=== PATIENT | female | born 1990 | race Caucasian/White ===

== ENCOUNTER 2024-08-06 09:09 | Emergency (ER) | payer MEDICAID, SELFPAY ==
[2024-08-06 09:49] VITALS: BP 137/84; PULSE 84; RESP 17; TEMP 36.8; O2SAT 96; BMI 26.9
--- NOTE | 2024-08-06 10:04 | XR_ITS ---
Examination: Abdomen sonogram, Limited Date and time of exam: August 06, 2024 1058 hours INDICATIONS: Vomiting epigastric pain beginning 6 months ago Technique: Real-time hendrickson scale transabdominal sonographic images of the upper abdomen obtained. Findings: Absent gallbladder Common bile duct 0.36 cm no stones Pancreatic head 1.9 cm Liver 14.8 cm fatty infiltration smooth contour no focal liver lesions Normal hepatopedal portal venous flow Patent IVC IMPRESSION: Absent gallbladder Normal common bile duct Fatty liver
--- NOTE | 2024-08-06 10:06 | PD.EDRME ---
Rapid Medical Screening Exam RME Arrival date/time: 08/06/24 09:09 33-year-old female presents to the emergency department with complaints of upper epigastric abdominal pain nausea vomiting and bloating. I have greeted and performed a focused initial assessment of this patient. Initial appropriate labs ordered at this time. A comprehensive ED assessment and evaluation of the patient and analysis of all test and completion of medical decision making process will be conducted by additional ED provider. Chief Complaint: Abdominal Pain Time Seen by Provider: 08/06/24 09:46 Vital signs: Vital Signs Temperature 98.2 F 08/06/24 09:49 Pulse Rate 84 08/06/24 09:49 Respiratory Rate 17 08/06/24 09:49 Blood Pressure 137/84 H 08/06/24 09:49 Pulse Oximetry (%) 96 08/06/24 09:49 Oxygen Delivery Method Room Air 08/06/24 09:49
[2024-08-06 10:31] LABS: Basophils % (Auto) 0 % (0-2.5); Eosinophils % (Auto) 1 % (0-10); Hematocrit 39.2 % (36.0-46.0); Hemoglobin 13.5 g/dL (12.0-16.0); Immature Granulocytes % (Auto) 1 % (0-0); Immature Granulocytes Auto 0.03 Thou/mm3 (0.00-0.00); Lymphocytes # (Auto) 1.5 Thou/mm3 (1.0-4.8); Lymphocytes % (Auto) 28 % (10-50); Mean Corpuscular HGB Conc 34.4 g/dl (31.0-37.0); Mean Corpuscular Hemoglobin 31.4 pg (25.0-35.0); Mean Corpuscular Volume 91 fL (80-100); Monocytes # (Auto) 0.4 Thou/mm3 (0.0-0.8); Monocytes % (Auto) 6 % (0-12); Neutrophils # (Auto) 3.6 Thou/mm3 (1.8-7.7); Neutrophils % (Auto) 64 % (37-80); Nucleated Red Blood Cell % 0 /100 WBC (0); Platelet Count 221 Thou/mm3 (140-440); RDW Standard Deviation 39.3 fL (36.4-46.3); White Blood Count 5.5 Thou/mm3 (3.6-11.0)
[2024-08-06 10:50] LABS: Alanine Aminotransferase 441 U/L (10-49); Albumin, Serum 4.6 gm/dL (3.5-5.0); Albumin/Globulin Ratio 1.6 (1.2-2.2); Alkaline Phosphatase 70 U/L (46-116); Anion Gap 5 (7-16); Aspartate Amino Transferase 441 U/L (0-34); BUN/Creatinine Ratio 16 Ratio (12-20); Bilirubin,Total 0.9 mg/dL (0.3-1.2); Blood Urea Nitrogen 13 mg/dL (9-23); Calcium 9.7 mg/dL (8.3-10.6); Calcium (Corrected) 9.7 mg/dL (8.5-10.1); Carbon Dioxide 27.7 mMol/L (20.0-31.0); Chloride 104 mMol/L (98-107); Creatinine (Component) 0.8 mg/dL (0.6-1.3); Estimated Creatinine Clearance 88.7 mL/min (>60); Globulin 2.8 gm/dL (2.3-3.5); Glucose 89 mg/dL (74-106); Lipase 36 U/L (12-53); Osmolality,Calculated 272 (275-295); Potassium 4.4 mMol/L (3.4-5.1); Sodium 137 mMol/L (136-145); Total Protein 7.4 gm/dL (5.7-8.2); eGFR > 60 See Note
[2024-08-06 11:05] LABS: Collection Type, Urine Clean Catch
[2024-08-06] MEDS: LIDOCAINE VISCOUS 2% 15 ML UDC PO (11:06)
[2024-08-06] MEDS: MG HYD/AL HYD/SIME (Maalox Reg) SUSP 30 ML UDC PO (11:06)
[2024-08-06 11:12] LABS: Bilirubin,Urine Negative (Negative); Blood,Urine Negative (Negative); Clarity,Urine Clear (Clear/Hazy); Color,Urine Yellow (Lt Yel-Yel); Glucose, Urine Negative (Negative); Ketones,Urine Negative (Negative); Leukocyte Esterase,Urine Positive (Negative); Nitrite,Urine Negative (Negative); Protein,Urine Trace (Neg - Trace); RBC,Urine 3 /hpf (0-3); Specific Gravity,Urine 1.025 (1.001-1.035); Squamous Epithelial Cell,Urine 4 /hpf (0-5); WBC,Urine 1 /hpf (0-5)
[2024-08-06 11:15] LABS: HCG Qualitative,Urine Negative
--- NOTE | 2024-08-06 11:43 | PD.EDABDPN ---
ED Abdominal Pain RME/HPI General Chief Complaint: Abdominal Pain Stated complaint: BURNING PAIN IN UPPER ABD Time seen by provider: 08/06/24 09:46 Arrival date/time: 08/06/24 09:09 RME / HPI RME / HPI narrative: 33-year-old female patient came in for evaluation regarding epigastric pain. Onset of symptoms last night, as burning-like sensation, severity moderate. Patient denies any vomiting denies any other complaints no medication was taken prior to arrival. Abdominal surgery includes laparoscopic cholecystectomy. Patient is not alcoholic. Related Data Home Medications ?Medication ?Instructions ?Recorded ?Confirmed methadone 10 mg/mL oral concentrate 10 mg PO Q6H 12/18/23 01/06/24 Previous Rx's ?Medication ?Instructions ?Recorded oxycodone-acetaminophen 5 mg-325 1 tab PO Q6H PRN pain #10 tabs 12/18/23 mg tablet (Percocet) pantoprazole 40 mg tablet,delayed 40 mg PO QDAY #20 tabs 08/06/24 release (Protonix) Allergies Allergy/AdvReac Type Severity Reaction Status Date / Time No Known Allergies Allergy Verified 08/06/24 09:13 Review of Systems Review of Systems Narrative Review of Systems: Review of system reviewed and within normal limits except mentioned in HPI ED Exam Narrative Physical exam: VITAL SIGNS: Reviewed. GENERAL APPEARANCE: Alert and interactive, follows commands, no acute distress, HEAD AND FACE: Non-traumatic. ENT: PERRL, pink conjunctivitis, eyelid no trauma, Mucous membrane moist. NECK: Supple, nontender, no nuchal rigidity. CHEST: No tenderness, no crepitus, no paradoxical movement, no retractions. LUNGS: Clear, well ventilated, symmetric, no rales, no wheezing, no ronchi, no stridor, good breath sounds bilaterally. HEART: Regular rate, regular rhythm, no murmur, no gallops. ABDOMEN: Soft, positive bowel sounds, nondistended, no guarding, epigastric tenderness, no rebound, no masses, RECTAL: Deferred. GENITAL: Deferred. NEUROLOGICAL: Gross motor function intact sensory function intact, Appropriate for age. MUSCULOSKELETAL: low back nontender, full range of motion. EXTREMITIES: Nontender, full range of motion. SKIN: Color pink, dry, no rash, no lacerations, no abrasions, no contusions. LYMPHATICS: Deferred. Course Quality Measures none Orders Category Date Time Status US gall bladder Stat Exams 08/06/24 10:04 Completed CBC Stat Lab 08/06/24 10:11 Completed Comprehensive Metabolic Panel Stat Lab 08/06/24 10:11 Completed HCG Qualitative,Urine Stat Lab 08/06/24 10:49 Completed Lipase Stat Lab 08/06/24 10:11 Completed Urinalysis Stat Lab 08/06/24 10:49 Completed Lidocaine 2% Viscous [Xylocaine 2% Viscous] Med 08/06/24 10:04 Discontinued 15 ml PO X1 ONE mg Hyd/Al Hyd/Migue Susp [Maalox Susp] Med 08/06/24 10:04 Discontinued 30 ml PO X1 ONE Vital Signs Vital signs: Vital Signs Temperature 98.2 F 08/06/24 09:49 Pulse Rate 84 08/06/24 09:49 Respiratory Rate 17 08/06/24 09:49 Blood Pressure 137/84 H 08/06/24 09:49 Pulse Oximetry (%) 96 08/06/24 09:49 Oxygen Delivery Method Room Air 08/06/24 09:49 Abdominal Pain MDM MDM Narrative MDM Narrative:: 33-year-old female patient came in for evaluation regarding epigastric pain. Onset of symptoms last night, as burning-like sensation, severity moderate. Patient denies any vomiting denies any other complaints no medication was taken prior to arrival. Abdominal surgery includes laparoscopic cholecystectomy. Patient is not alcoholic. Laboratory workup is significant for slightly elevated AST and ALT. The rest of the labs unremarkable ultrasound showed no acute pathology. Except for absent gallbladder. Common bile duct is normal. Results discussed with the patient. Patient was advised to follow-up closely with PCP and for referral to GI specialist regarding slightly elevated LFTs. Total bili is normal today. Patient's LFT also was noted to be elevated from previous visit. Patient was given GI cocktail with complete resolution of symptoms. Patient appears nontoxic and hemodynamically stable. Patient discharged home and instructed to follow-up with primary care provider in 24 to 48 hours. Instructed to return to the emergency department immediately if worsening of symptoms Patient data External records reviewed:: None Clinical information provided by:: none Social determinants that could affect healthcare access:: none Patient has the following chronic illnesses:: None How is presenting disease/condition affected by chronic disease/condition?: no chronic disease Evaluation data The following diagnostics were reviewed and interpreted by me:: lab results and radiology exam(s) Lab and/or radiology exams considered but not ordered:: None Interpretation Summary: See results in [facility] Medications / Prescriptions Medications or Prescriptions considered but not ordered:: None Medication administrations:: Medication Administration History Discontinued Medications Al Hydrox/Mg Hydrox/Simethicone (Mg Hyd/Al Hyd/Migue (Maalox Reg) Susp 30 Ml Udc) 30 ml PO X1 ONE Stop: 08/06/24 10:05 Last Admin: 08/06/24 11:06 Dose: 30 ml Documented By: TM Lidocaine HCl (Lidocaine Viscous 2% 15 Ml Udc) 15 ml PO X1 ONE Stop: 08/06/24 10:05 Last Admin: 08/06/24 11:06 Dose: 15 ml Documented By: GISELL Maalox and lidocaine viscus Consultations Consultation(s) initiated? (list below): No Diagnosis Differential diagnosis abdominal pain: abdominal pain, constipation and pancreatitis Most likely diagnosis given after review of the tests above:: Epigastric abdominal pain, gastritis Admission Indicated Admission indicated?: not indicated Admission Request Was there a request for admission?: No Disposition Plan Disposition Plan: Discharge Discharge Attestation Discharge Attestation: The patient was given an opportunity to ask questions and understood the discharge instructions. Discharge instructions specifically effects, indications for sooner follow up or return to the emergency department, and the expected course of current diagnosis. Patient condition: Stable Discharge Plan Plan Patient Disposition: HOME (Self Care) Disposition Comment: Stable Prescriptions/Referrals Prescriptions/Med Rec: New pantoprazole [Protonix] 40 mg tablet,delayed release (DR/EC) 40 mg PO QDAY Qty: 20 0RF No Action methadone 10 mg/mL Concentrate 10 mg PO Q6H oxycodone-acetaminophen [Percocet] 5-325 mg tablet 1 tab PO Q6H MDD 6 tabs PRN (Reason: pain) Qty: 10 0RF Referrals: Kris Jarvis MD [Primary Care Provider] - In 1 week Problem List Clinical Impression: Epigastric abdominal pain, Gastritis Patient/Caregiver Discharge Instructions Discharge Activity: activity as tolerated Education Materials: ED Gastritis (Adult) Additional Instructions: Thank you for the opportunity for serving you today. You are stable for discharged . You are advised to: Follow-up with your PCP in 1 to 2 days Return to ED for worsening of symptoms Increase oral fluids Take medication as prescribed Print Language: Bulgarian Stand Alone Forms: [employer] Info., Patient Portal Info Letter
== END 2024-08-06 12:01 | disposition home or self-care (01) ==
PROVIDERS: Nurse Practitioner Primary Care; Emergency Provider Emergency Medicine; PCP Family Medicine
DX: K29.70 Gastritis, unspecified, without bleeding (principal)
CPT/HCPCS: 36415; 76705; 80053; 81001; 81025; 83690; 85025; 99284; J3490; A9270

== ENCOUNTER 2024-08-09 16:32 | Emergency (ER) | payer MEDICAID, SELFPAY ==
[2024-08-09 17:20] VITALS: BP 150/96; PULSE 100; RESP 18; TEMP 36.9; O2SAT 95; BMI 24.5
--- NOTE | 2024-08-09 17:23 | XR_ITS ---
Examination: CT brain head without contrast. 2-D sagittal coronal reconstructions Date and time of exam:August 09, 2024 1744 hrs. Indications: Onset headaches dizziness today CTDI: vol (mGy):49 DLP: (mGycm):938 Technique: Multiple CT axial sections of the brain have been obtained, 5 mm slice thickness. Contrast has not been administered. 2-D sagittal, coronal reconstructions have been obtained Low dose protocols were performed. One or more of the following dose reduction techniques were used; automated exposure control, adjustment of the mA and/or KV according to patient size, use of iterative reconstruction technique. Findings: No significant ventricular enlargement. Intra-axial or extra-axial hemorrhage density is not seen. No mass effect or midline shift Basal cisterns are not remarkable. Fourth ventricle is midline. Cranial vault intact. Impression: Negative for acute hemorrhage, mass effect or midline shift Advise clinical correlation follow-up accordingly
--- NOTE | 2024-08-09 17:23 | EKG_ITS ---
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
--- NOTE | 2024-08-09 17:23 | XR_ITS ---
Examination: PA lateral chest 2 views Technique: Upright PA lateral chest 2 views Exam date and time August 09, 2024 at 1852 hrs. Indications: Chest pain beginning 3 days ago. Findings: Normal heart size Lungs are clear. The osseous structures are intact Impression: No active disease
--- NOTE | 2024-08-09 17:25 | PD.EDRME ---
Rapid Medical Screening Exam E Arrival date/time: 08/09/24 16:32 33-year-old female with no known medical history presents to the emergency room with a chief complaint of a 10 out of 10 headache, dizziness, numbing feeling to her face x 2 days. I have greeted and performed a focused initial assessment of this patient. A comprehensive ED assessment and evaluation of the patient, analysis of all test results, and completion of the medical decision making process will be conducted by additional ED providers. Chief Complaint: Allergic Reaction Vital signs: Vital Signs Temperature 98.5 F 08/09/24 17:20 Pulse Rate 100 08/09/24 17:20 Respiratory Rate 18 08/09/24 17:20 Blood Pressure 150/96 H 08/09/24 17:20 Pulse Oximetry (%) 95 08/09/24 17:20 Oxygen Delivery Method Room Air 08/09/24 17:20 Vital signs reviewed by provider: Yes
[2024-08-09 18:26] LABS: B-Type Natriuretic Peptide < 20 pg/mL (0-100)
[2024-08-09 18:28] LABS: Alanine Aminotransferase 114 U/L (10-49); Albumin, Serum 4.8 gm/dL (3.5-5.0); Albumin/Globulin Ratio 1.7 (1.2-2.2); Alkaline Phosphatase 59 U/L (46-116); Anion Gap 9 (7-16); Aspartate Amino Transferase 15 U/L (0-34); BUN/Creatinine Ratio 13 Ratio (12-20); Bilirubin,Total 0.3 mg/dL (0.3-1.2); Blood Urea Nitrogen 10 mg/dL (9-23); Calcium 9.6 mg/dL (8.3-10.6); Calcium (Corrected) 9.6 mg/dL (8.5-10.1); Chloride 101 mMol/L (98-107); Creatinine (Component) 0.8 mg/dL (0.6-1.3); Estimated Creatinine Clearance 89.2 mL/min (>60); Globulin 2.8 gm/dL (2.3-3.5); Glucose 92 mg/dL (74-106); Osmolality,Calculated 274 (275-295); Potassium 3.8 mMol/L (3.4-5.1); Sodium 138 mMol/L (136-145); Total Protein 7.6 gm/dL (5.7-8.2); Troponin I < 0.002 ng/mL (0.0-0.045); eGFR > 60 See Note
[2024-08-09 18:36] LABS: Basophils % (Auto) 0 % (0-2.5); Eosinophils % (Auto) 0 % (0-10); Hematocrit 38.2 % (36.0-46.0); Hemoglobin 13.2 g/dL (12.0-16.0); Immature Granulocytes % (Auto) 0 % (0-0); Immature Granulocytes Auto 0.03 Thou/mm3 (0.00-0.00); Lymphocytes # (Auto) 2.6 Thou/mm3 (1.0-4.8); Lymphocytes % (Auto) 22 % (10-50); Mean Corpuscular HGB Conc 34.6 g/dl (31.0-37.0); Mean Corpuscular Hemoglobin 31.4 pg (25.0-35.0); Mean Corpuscular Volume 91 fL (80-100); Monocytes # (Auto) 0.4 Thou/mm3 (0.0-0.8); Monocytes % (Auto) 3 % (0-12); Neutrophils # (Auto) 8.4 Thou/mm3 (1.8-7.7); Neutrophils % (Auto) 73 % (37-80); Nucleated Red Blood Cell % 0 /100 WBC (0); Platelet Count 233 Thou/mm3 (140-440); RDW Standard Deviation 39.1 fL (36.4-46.3); Red Blood Count 4.21 Miln/mm3 (4.00-5.20); White Blood Count 11.5 Thou/mm3 (3.6-11.0)
[2024-08-09 18:47] LABS: Collection Type, Urine Clean Catch
[2024-08-09 19:03] LABS: Amphetamine/Methamp Scrn,U Negative (Negative); Barbiturate Screen,Urine Negative (Negative); Benzodiazepines Screen,Urine Negative (Negative); Benzoylecgonine Screen, Ur Negative (Negative); Fentanyl Screen,Urine Negative (Negative); Opiate Screen,Urine Negative (Negative); THC Screen,Urine Negative (Negative)
[2024-08-09 19:40] LABS: Bilirubin,Urine Negative (Negative); Blood,Urine Negative (Negative); Clarity,Urine Clear (Clear/Hazy); Color,Urine Yellow (Lt Yel-Yel); Glucose, Urine Negative (Negative); Hyaline Casts,Urine < 1 /hpf (0-1); Ketones,Urine Trace (Negative); Leukocyte Esterase,Urine Positive (Negative); Nitrite,Urine Negative (Negative); Protein,Urine Trace (Neg - Trace); RBC,Urine 4 /hpf (0-3); Specific Gravity,Urine 1.034 (1.001-1.035); Squamous Epithelial Cell,Urine 6 /hpf (0-5); Urobilinogen,Urine Negative mg/dL (0.0-1.0); WBC,Urine 1 /hpf (0-5)
[2024-08-09 19:53] VITALS: BP 149/89; PULSE 93; RESP 18; TEMP 37; O2SAT 100
[2024-08-09 20:56] VITALS: BP 156/95; PULSE 93; RESP 18; TEMP 36.9; O2SAT 100
--- NOTE | 2024-08-09 21:28 | XR_ITS ---
Examination: Cervical spine 3 views Technique: AP lateral coned AP odontoid cervical spine 3 views Exam date and time: August 09, 2024 2142 hrs. Indications: Neck burning sensation beginning 3 days ago. Findings: Straightening normal cervical lordosis No cervical fracture Intact odontoid No significant cervical disc narrowing Impression: No fracture or significant arthritic change
[2024-08-09] MEDS: CYCLObenzaPRINE 5 MG TABLET PO (21:41)
--- NOTE | 2024-08-09 21:42 | PD.EDALLER ---
ED Allergic Reaction RME/HPI General Chief complaint: Allergic Reaction Stated complaint: POSSIBLE REACTION TO RX MEDS; H/A, ACHEY, COLD Time Seen by Provider: 08/09/24 21:29 Source: patient Arrival date/time: 08/09/24 16:32 Mode of arrival: ambulatory Limitations: no limitations RME / HPI RME / HPI narrative: 08/09/24 16:32 33-year-old female with no known medical history presents to the emergency room with a chief complaint of a 10 out of 10 headache, dizziness, numbing feeling to her face x 2 days. I have greeted and performed a focused initial assessment of this patient. A comprehensive ED assessment and evaluation of the patient, analysis of all test results, and completion of the medical decision making process will be conducted by additional ED providers. DR RAMIREZ MAIN ED EVALUATION: 33-year-old female with no known medical history presenting to the Emergency Department with complaints of headache radiating up the back of her neck for the past two days. States she gets occasional hot or cold sensation up the back of her neck and occasional tingling. Denies injury. States she has recently had additional stressors regarding the custody and care of her daughter. She denies fever, neck stiffness, vision changes, nausea, vomiting, weakness, slurred speech, or focal neurological deficits. She has no history of migraines or prior similar episodes. No recent head trauma, new medications, or known allergies are reported. Related Data Home Medications ?Medication ?Instructions ?Recorded ?Confirmed methadone 10 mg/mL oral concentrate 10 mg PO Q6H 12/18/23 01/06/24 Previous Rx's ?Medication ?Instructions ?Recorded oxycodone-acetaminophen 5 mg-325 1 tab PO Q6H PRN pain #10 tabs 12/18/23 mg tablet (Percocet) pantoprazole 40 mg tablet,delayed 40 mg PO QDAY #20 tabs 08/06/24 release (Protonix) Allergies Allergy/AdvReac Type Severity Reaction Status Date / Time No Known Allergies Allergy Verified 08/09/24 16:35 Review of Systems Review of Systems Systems Reviewed: All systems reviewed, normal except as documented Past Medical History Past Medical History NEUROLOGIC: Negative Seizures CARDIAC: Negative Congestive Heart Failure RESPIRATORY: Negative Chronic Obstructive Pulmonary Disease (COPD) or Smoking GENITOURINARY: Negative Renal Disease ENDOCRINE: Negative Diabetes Mellitus Type 1 or Diabetes Mellitus Type 2 OTHER HISTORY: Negative Blood Transfusions, Blood Transfusion Reaction or Anesthesia Reactions Surgical History SURGICAL: Positive Section Social History SMOKING STATUS: Never smoker ED Exam Narrative Physical exam: GENERAL APPEARANCE: alert and oriented x 4, well-developed, well-nourished, no acute distress VITALS: All vitals were reviewed and the pulse ox is 100% on room air, which is normal according to my interpretation. HEENT: Normocephalic, atraumatic; pupils equal, round, reactive to light; EOMI; mucous membranes pink, moist; oropharynx clear NECK: Supple LUNGS: CTABL; no wheezes, no rales, no rhonchi HEART: Regular rate, regular rhythm; normal S1, S2; no murmurs ABDOMEN: non distended; normal BS; soft, no tenderness, no guarding, no rebound; no masses, no organomegaly, no hernia BACK: no CVA tenderness EXTREMITIES: atraumatic; no edema NEUROLOGIC: awake; alert and oriented x4; cranial nerves II-XII grossly intact; no focal sensory or motor deficits PSYCHIATRIC: appropriate mood and affect SKIN: warm, dry, normal color; no rashes General Limitations: Present no limitations Course Course Course Narrative: CXR is ordered for determining etiology of shortness of breath. Quality Measures none Orders Category Date Time Status Bedside COVID-19 Antigen Test NOW Care 08/09/24 17:23 Completed Bedside Influenza A&B Antigen Test NOW Care 08/09/24 17:23 Completed EKG (ED ONLY) *Do not use* NOW Care 08/09/24 17:[address] head/brain wo con Stat Exams 08/09/24 17:23 Completed EKG (ED Only) Stat Exams 08/09/24 17:23 Draft XR cervical spine 2-3V Stat Exams 08/09/24 21:28 Completed XR chest 2V Stat Exams 08/09/24 17:23 Completed B-Type Natriuretic Peptide Stat Lab 08/09/24 18:00 Completed CBC Stat Lab 08/09/24 18:00 Completed Comprehensive Metabolic Panel Stat Lab 08/09/24 18:00 Completed Drug Screen,Urine Stat Lab 08/09/24 18:36 Completed Troponin I Stat Lab 08/09/24 18:00 Completed Urinalysis Stat Lab 08/09/24 18:36 Completed CYCLObenzaPRINE [Flexeril] Med 08/09/24 21:25 Discontinued 5 mg PO X1 ONE Vital Signs Vital signs: Vital Signs Temperature 98.5 F 08/09/24 17:20 Pulse Rate 100 08/09/24 17:20 Respiratory Rate 18 08/09/24 17:20 Blood Pressure 150/96 H 08/09/24 17:20 Pulse Oximetry (%) 95 08/09/24 17:20 Oxygen Delivery Method Room Air 08/09/24 17:20 Allergic Reaction MDM Narrative MDM Narrative:: Scribe Attestation: I, Madina Rouse, am scribing for and in the presence of Dr. Ramirez. Provider Notation: Although this document has been carefully reviewed, there may still be some phonetic and other typographical errors. These errors are purely grammatical due to imperfections in the software program and should not be construed in any way to compromise the substance of the patient's medical care during this visit. Patient data External records reviewed:: [facility] previous records Clinical information provided by:: patient Social determinants that could affect healthcare access:: none Patient has the following chronic illnesses:: see PMH How is presenting disease/condition affected by chronic disease/condition?: uneffected by Evaluation data The following diagnostics were reviewed and interpreted by me:: lab results, radiology exam(s) and EKG tracing(s) Lab and/or radiology exams considered but not ordered:: na Interpretation Summary: I personally reviewed the radiology data and agree with the radiologist's interpretation. Examination: PA lateral chest 2 views Exam date and time August 09, 2024 at 1852 hrs. Indications: Chest pain beginning 3 days ago. Findings: Normal heart size Lungs are clear. The osseous structures are intact Impression: No active disease Dictated By: Albert Felder MD Examination: CT brain head without contrast. Date and time of exam:August 09, 2024 1744 hrs. Indications: Onset headaches dizziness today Findings: No significant ventricular enlargement. Intra-axial or extra-axial hemorrhage density is not seen. No mass effect or midline shift Basal cisterns are not remarkable. Fourth ventricle is midline. Cranial vault intact. Impression: Negative for acute hemorrhage, mass effect or midline shift Advise clinical correlation follow-up accordingly Dictated By: Albert Felder MD Medications / Prescriptions Medications or Prescriptions considered but not ordered:: na Medication administrations:: Medication Administration History Discontinued Medications Cyclobenzaprine HCl (Cyclobenzaprine 5 Mg Tablet) 5 mg PO X1 ONE Stop: 08/09/24 21:26 Last Admin: 08/09/24 21:41 Dose: 5 mg Documented By: CVL as above Consultations Consultation(s) initiated? (list below): No Diagnosis Differential Diagnosis allergic reaction: anaphylaxis, allergic reaction, contact dermatitis and adverse reaction to drug Most likely diagnosis given after review of the tests above:: Muscle tension headache, Neck pain without injury Admission Indicated Admission indicated?: not indicated Admission Request Was there a request for admission?: No Disposition Plan Disposition Plan: Discharge Discharge Attestation Discharge Attestation: The patient and all family members were given an opportunity to ask questions and understood the discharge instructions. Discharge instructions specifically effects, indications for sooner follow up or return to the emergency department, and the expected course of current diagnosis. Patient condition: Stable Discharge Plan Plan Patient Disposition: HOME (Self Care) Prescriptions/Referrals Prescriptions/Med Rec: No Action pantoprazole [Protonix] 40 mg tablet,delayed release (DR/EC) 40 mg PO QDAY Qty: 20 0RF methadone 10 mg/mL Concentrate 10 mg PO Q6H oxycodone-acetaminophen [Percocet] 5-325 mg tablet 1 tab PO Q6H MDD 6 tabs PRN (Reason: pain) Qty: 10 0RF Referrals: Kris Jarvis MD [Primary Care Provider] - In 1 week Problem List Clinical Impression: Muscle tension headache, Neck pain without injury Patient/Caregiver Discharge Instructions Education Materials: Tension Headaches Print Language: Yoruba Stand Alone Forms: [employer] Info., Work/School Release, Patient Portal Info Letter
[2024-08-09 22:22] VITALS: RESP 18
== END 2024-08-09 22:23 | disposition home or self-care (01) ==
PROVIDERS: Nurse Practitioner Family; Emergency Provider Emergency Medicine; PCP Family Medicine
DX: G44.209 Tension-type headache, unspecified, not intractable (principal); M54.2 Cervicalgia; R07.9 Chest pain, unspecified; I49.8 Other specified cardiac arrhythmias
CPT/HCPCS: 36415; 70450; 71046; 72040; 80053; 80307; 81001; 83880; 84484; 85025; 87400; 87811; 93005; 99284; A9270

== ENCOUNTER 2025-02-14 18:33 | Emergency (ER) | payer MEDICAID, SELFPAY ==
[2025-02-14 19:07] VITALS: BP 142/89; PULSE 97; RESP 20; TEMP 37.1; O2SAT 98
--- NOTE | 2025-02-14 19:18 | XR_ITS ---
Examination: CT brain head without contrast. 2-D sagittal coronal reconstructions Date and time of exam:February 14, 2025, 1940 hrs. Indications: Onset headaches one month, numbness in left leg and paresthesias in the left arm today CTDI: vol (mGy):49.5 DLP: (mGycm):978 Technique: Multiple CT axial sections of the brain have been obtained, 5 mm slice thickness. Contrast has not been administered. 2-D sagittal, coronal reconstructions have been obtained Low dose protocols were performed. One or more of the following dose reduction techniques were used; automated exposure control, adjustment of the mA and/or KV according to patient size, use of iterative reconstruction technique. Findings: No significant ventricular enlargement. Intra-axial or extra-axial hemorrhage density is not seen. No mass effect or midline shift Basal cisterns are not remarkable. Fourth ventricle is midline. Cranial vault intact. Impression: Negative for acute hemorrhage, mass effect or midline shift As clinically warranted, brain MRI follow-up would best assess for demyelinating disease
--- NOTE | 2025-02-14 19:19 | PD.EDRME ---
Rapid Medical Screening Exam [facility] Arrival date/time: 02/14/25 18:33 This is a 34-year-old female that comes into the emergency room with complaints of on and off numbness and tingling to her left arm and left leg. Patient has no focal deficits. Patient states she was taking a nap and she woke up and had numbness. Patient states she was laying on her back she was not laying on that side. Patient states earlier she had a mild headache. Patient does have a history of migraines. Patient reports that she was having a migraine almost every day when she started taking Celexa. Patient is now weaning herself off the Celexa and now taking half the dose. Patient noticed that now that she is weaning herself off the Celexa as she is not having as much headaches that she was. Patient very tearful in triage. Patient denies alcohol and drug use. Patient denies nausea vomiting. Patient reports pressure behind her eyes. I have greeted and performed a focused initial assessment of this patient. Initial appropriate labs ordered at this time. A comprehensive ED assessment and evaluation of the patient and analysis of all test and completion of medical decision making process will be conducted by additional ED provider. Chief Complaint: Extremity Injury, Upper Time Seen by Provider: 02/14/25 18:51 Vital signs: Vital Signs Temperature 98.8 F 02/14/25 19:07 Pulse Rate 97 02/14/25 19:07 Respiratory Rate 20 02/14/25 19:07 Blood Pressure 142/89 H 02/14/25 19:07 Pulse Oximetry (%) 98 02/14/25 19:07 Oxygen Delivery Method Room Air 02/14/25 19:07
[2025-02-14 19:44] LABS: Collection Type, Urine Voided
[2025-02-14 19:57] LABS: Bilirubin,Urine Negative (Negative); Blood,Urine Negative (Negative); Clarity,Urine Clear (Clear/Hazy); Color,Urine Lt-Yellow (Lt Yel-Yel); Culture Indicated,Urine Not Indicated; Glucose, Urine Negative (Negative); Ketones,Urine Negative (Negative); Leukocyte Esterase,Urine Negative (Negative); Nitrite,Urine Negative (Negative); PH,Urine 6.0 (5.0-7.0); Protein,Urine Negative (Neg - Trace); RBC,Urine 4 /hpf (0-3); Specific Gravity,Urine 1.020 (1.001-1.035); Squamous Epithelial Cell,Urine 4 /hpf (0-5); Urobilinogen,Urine Negative mg/dL (0.0-1.0); WBC,Urine < 1 /hpf (0-5)
[2025-02-14 20:01] LABS: Amphetamine/Methamp Scrn,U Negative (Negative); Barbiturate Screen,Urine Negative (Negative); Benzodiazepines Screen,Urine Negative (Negative); Benzoylecgonine Screen, Ur Negative (Negative); Fentanyl Screen,Urine Negative (Negative); Opiate Screen,Urine Negative (Negative); THC Screen,Urine Negative (Negative)
[2025-02-14 20:02] LABS: Basophils # (Auto) 0.0 Thou/mm3 (0.0-0.2); Basophils % (Auto) 0 % (0-2.5); Eosinophils # (Auto) 0.1 Thou/mm3 (0.0-0.5); Eosinophils % (Auto) 1 % (0-10); Hematocrit 38.4 % (36.0-46.0); Hemoglobin 13.0 g/dL (12.0-16.0); Immature Granulocytes Auto 0.09 Thou/mm3 (0.00-0.00); Lymphocytes # (Auto) 3.4 Thou/mm3 (1.0-4.8); Lymphocytes % (Auto) 31 % (10-50); Mean Corpuscular HGB Conc 33.9 g/dl (31.0-37.0); Mean Corpuscular Hemoglobin 31.7 pg (25.0-35.0); Mean Corpuscular Volume 94 fL (80-100); Monocytes # (Auto) 0.6 Thou/mm3 (0.0-0.8); Monocytes % (Auto) 5 % (0-12); Neutrophils # (Auto) 6.8 Thou/mm3 (1.8-7.7); Neutrophils % (Auto) 62 % (37-80); Nucleated Red Blood Cell # 0.00 Thou/mm3 (0.00-0.00); Nucleated Red Blood Cell % 0 /100 WBC (0); Platelet Count 235 Thou/mm3 (140-440); RDW Standard Deviation 40.6 fL (36.4-46.3); Red Blood Count 4.10 Miln/mm3 (4.00-5.20); White Blood Count 11.0 Thou/mm3 (3.6-11.0)
[2025-02-14 20:14] LABS: Alanine Aminotransferase 22 U/L (10-49); Albumin, Serum 4.3 gm/dL (3.5-5.0); Albumin/Globulin Ratio 1.5 (1.2-2.2); Alkaline Phosphatase 46 U/L (46-116); Anion Gap 9 (7-16); Aspartate Amino Transferase 20 U/L (0-34); BUN/Creatinine Ratio 10 Ratio (12-20); Bilirubin,Total 0.2 mg/dL (0.3-1.2); Blood Urea Nitrogen 8 mg/dL (9-23); Calcium 9.2 mg/dL (8.3-10.6); Calcium (Corrected) 9.2 mg/dL (8.5-10.1); Carbon Dioxide 27.6 mMol/L (20.0-31.0); Chloride 105 mMol/L (98-107); Creatinine (Component) 0.8 mg/dL (0.6-1.3); Estimated Creatinine Clearance 87.9 mL/min (>60); Globulin 2.9 gm/dL (2.3-3.5); Glucose 88 mg/dL (74-106); INR 0.9 (0.9-1.3); Osmolality,Calculated 280 (275-295); Potassium 3.5 mMol/L (3.4-5.1); Prothrombin Time 10.4 Seconds (9.0-12.2); Sodium 142 mMol/L (136-145); Total Protein 7.2 gm/dL (5.7-8.2); eGFR > 60 See Note
[2025-02-14 20:35] VITALS: BP 121/80; PULSE 81; RESP 18; TEMP 36.7; O2SAT 97
--- NOTE | 2025-02-14 21:27 | EDNOTE_ITS ---
Upper Extremity Injury RME/HPI General Chief Complaint: Extremity Injury, Upper Stated Complaint: L) HAND/LEG/FOOT NUMB Time Seen by Provider: 02/14/25 18:51 Arrival date/time: 02/14/25 18:33 Will come in for thisThis is a 34-year-old female that comes into the emergency room with complaints of on and off numbness and tingling to her left arm and left leg. Patient has no focal deficits. Patient states she was taking a nap and she woke up and had numbness. Patient states she was laying on her back she was not laying on that side. Patient states earlier she had a mild headache. Patient does have a history of migraines. Patient reports that she was having a migraine almost every day when she started taking Celexa. Patient is now weaning herself off the Celexa and now taking half the dose. Patient noticed that now that she is weaning herself off the Celexa as she is not having as much headaches that she was. Patient very tearful in triage. Patient denies alcohol and drug use. Patient denies nausea vomiting. Patient reports pressure behind her eyes. RME / HPI RME / HPI narrative: 02/14/25 18:33 I I have greeted and performed a focused initial assessment of this patient. Initial appropriate labs ordered at this time. A comprehensive ED assessment and evaluation of the patient and analysis of all test and completion of medical decision making process will be conducted by additional ED provider. Related Data Home Medications ?Medication ?Instructions ?Recorded ?Confirmed methadone 10 mg/mL oral concentrate 10 mg PO Q6H 12/1701/06/24 Previous Rx's ?Medication ?Instructions ?Recorded oxycodone-acetaminophen 5 mg-325 1 tab PO Q6H PRN pain #10 tabs 12/18/23 mg tablet (Percocet) pantoprazole 40 mg tablet,delayed 40 mg PO QDAY #20 ta bs 08/06/24 release (Protonix) Allergies Allergy/AdvReac Type Severity Reaction Status Date / Time No Known Allergies Allergy Verified 02/16/25 15:24 Review of Systems Review of Systems Systems Reviewed: All systems reviewed, normal except as documented Past Medical History Past Medical History NEUROLOGIC: Negative Seizures CARDIAC: Negative Congestive Heart Failure RESPIRATORY: Negative Chronic Obstructive Pulmonary Disease (COPD) or Smoking GENITOURINARY: Negative Renal Disease ENDOCRINE: Negative Diabetes Mellitus Type 1 or Diabetes Mellitus Type 2 OTHER HISTORY: Negative Blood Transfusions, Blood Transfusion Reaction or Anesthesia Reactions Surgical History SURGICAL: Positive Section Social History SMOKING STATUS: Never smoker ED Exam Narrative Physical exam: VITAL SIGNS: Reviewed. GENERAL APPEARANCE: Alert and interactive, follows commands, no acute distress, HEAD AND FACE: Non-traumatic. ENT: PERRL, conjuctiva pink and clear, eyelid no trauma, Mucous membrane moist. NECK: Supple, nontender, no nuchal rigidity. CHEST: No tenderness, no crepitus, no paradoxical movement, no retractions. LUNGS: Clear, well ventilated, symmetric, no rales, no wheezing, no rhonchi, no stridor, good breath sounds bilaterally. HEART: Regular rate, regular rhythm, no murmur, no gallops. ABDOMEN: Soft, nondistended, no guarding, nontender, no rebound, no masses, NEUROLOGICAL: Gross motor function intact sensory function intact, Appropriate for age. MUSCULOSKELETAL: low back nontender, full range of motion. EXTREMITIES: No redness no swelling no skin breakdown on bilateral foot and leg. Distal neurovascular status intact bilateral foot SKIN: Color pink, dry, no rash, no lacerations, no abrasions, no contusions. Course Quality Measures none Orders Category Date Time Status CT head/brain wo con Stat Exams 02/14/25 19:18 Completed CBC Stat Lab 02/14/25 19:35 Completed Comprehensive Metabolic Panel Stat Lab 02/14/25 19:35 Completed Drug Screen,Urine Stat Lab 02/14/25 19:35 Completed PT [Prothrombin Time with INR] Stat Lab 02/14/25 19:35 Completed Urinalysis, C/S if Indicated Stat Lab 02/14/25 19:35 Completed Vital Signs Vital signs: Vital Signs Temperature 98.8 F 02/14/25 19:07 Pulse Rate 97 02/14/25 19:07 Respiratory Rate 20 02/14/25 19:07 Blood Pressure 142/89 H 02/14/25 19:07 Pulse Oximetry (%) 98 02/14/25 19:07 Oxygen Delivery Method Room Air 02/14/25 19:07 Extremity Injury MDM Narrative MDM Narrative:: ct head: Findings: No significant ventricular enlargement. Intra-axial or extra-axial hemorrhage density is not seen. No mass effect or midline shift Basal cisterns are not remarkable. Fourth ventricle is midline. Cranial vault intact. Impression: Negative for acute hemorrhage, mass effect or midline shift As clinically warranted, brain MRI follow-up would best assess for demyelinating disease CBC reviewed unremarkable PT/INR unremarkable BMP unremarkable UA negative drug screen negative. Patient symptoms are better. Patient saying that she has sensations of tingling on and off to her left leg mostly to the bottom side of her leg and left arm. Patient able to move all extremities with no issues. Patient not complaining of any pain at this time. I told patient to make sure she follows up with a primary provider explained to her that I do not know if some of her symptoms are secondary to her coming off of medication. Patient states that she is having less migraines now that she is coming off the Celexa. Patient does have history of migraines I explained to her that this can also be a complex migraine. Symptoms are improved but patient still has some sensations of tingling to her left leg. I explained to patient that if symptoms change or worsen to come back to the emergency room patient feels comfortable plan of care. Patient data External records reviewed:: [facility] previous records Clinical information provided by:: patient Social determinants that could affect healthcare access:: none Patient has the following chronic illnesses:: see hpi How is presenting disease/condition affected by chronic disease/condition?: exacerbated by Evaluation data The following diagnostics were reviewed and interpreted by me:: radiology exam(s) Lab and/or radiology exams considered but not ordered:: none Interpretation Summary: see note Medications / Prescriptions Medications or Prescriptions considered but not ordered:: nonene Medication administrations:: see note Consultations Consultation(s) initiated? (list below): No Diagnosis Upper Extremity Injury Differential Diagnosis: other (complex migraine, medication withdrawl, anxiety) Most likely diagnosis given after review of the tests above:: anxiety, medication withdrawal Admission Indicated Admission indicated?: not indicated Admission Request Was there a request for admission?: No Disposition Plan Disposition Plan: Discharge Discharge Attestation Discharge Attestation: The patient and all family members were given an opportunity to ask questions and understood the discharge instructions. Discharge instructions specifically effects, indications for sooner follow up or return to the emergency department, and the expected course of current diagnosis. Patient condition: Stable Discharge Plan Plan Patient Disposition: HOME (Self Care) Patient condition on transfer: Stable Prescriptions/Referrals Prescriptions/Med Rec: No Action pantoprazole [Protonix] 40 mg tablet,delayed release (DR/EC) 40 mg PO QDAY Qty: 20 0RF methadone 10 mg/mL Concentrate 10 mg PO Q6H oxycodone-acetaminophen [Percocet] 5-325 mg tablet 1 tab PO Q6H MDD 6 tabs PRN (Reason: pain) Qty: 10 0RF Referrals: Kris Jarvis MD [Primary Care Provider] - In 1 week Problem List Clinical Impression: Paresthesia Patient/Caregiver Discharge Instructions Discharge Activity: activity as tolerated Education Materials: ED Paraesthesias Additional Instructions: Follow up with primary provider in 1-2 days. Come back to ED if symptoms change or worsen Print Language: Tajik Stand Alone Forms: Yaritza Award Info., Patient Portal Info Letter PA/SHOWER MAID Supervising Physician PA/SHOWER MAID Supervising Physician: jc
--- NOTE | 2025-02-14 21:58 | PC.NURSE ---
this rn attempted to call pt @1514. pt was not found
--- NOTE | 2025-02-14 22:06 | PC.NURSE ---
pt was called again at 2202 and no answer
--- NOTE | 2025-02-14 22:10 | PC.NURSE ---
pt was called for the third time with no answer. pt eloped
== END 2025-02-14 22:11 | disposition home or self-care (01) ==
PROVIDERS: Nurse Practitioner Family; Emergency Provider Emergency Medicine; PCP Family Medicine
DX: R20.2 Paresthesia of skin (principal); R20.0 Anesthesia of skin; R51.9 Headache, unspecified
CPT/HCPCS: 36415; 70450; 80053; 80307; 81001; 85025; 85610; 99284

== ENCOUNTER 2025-02-16 15:22 | Emergency (ER) | payer MEDICAID, SELFPAY ==
[2025-02-16 16:00] VITALS: BP 137/83; PULSE 66; RESP 16; TEMP 37.1; O2SAT 98
--- NOTE | 2025-02-16 16:13 | EKG_ITS ---
[facility] Test Date: 2025-02-16 Pat Name: LAYLA LEE Department: Room: - Gender: Female Sash Maker: : 1990 Requested By: Dimitry Bryan Order Number: [id number] Reading MD: Dimitry Bryan Measurements Intervals Vanderbilt Rate: 66 P: 58 MN: 171 QRS: 13 QRSD: 95 T: 28 QT: 411 QTc: 432 Interpretive Statements SINUS RHYTHM LOW QRS VOLTAGE IN PRECORDIAL LEADS [QRS DEFLECTION < 1.0 mV IN CHEST LEADS] NONSPECIFIC T-WAVE ABNORMALITY Compared to ECG 08/09/2024 17:30:17 Sinus arrhythmia no longer present T-wave abnormality still present /store/S0/[id number].pdf
--- NOTE | 2025-02-16 16:14 | PD.EDRME ---
Rapid Medical Screening Exam RME Arrival date/time: 02/16/25 15:22 34-year-old female with a history of anxiety presents to the emergency room with a chief complaint of generalized weakness fatigue and not feeling like herself. Patient states she has been tapered off of an SSRI that was prescribed to her for her anxiety. I have greeted and performed a focused initial assessment of this patient. A comprehensive ED assessment and evaluation of the patient, analysis of all test results, and completion of the medical decision making process will be conducted by additional ED providers. Chief Complaint: Anxiety Time Seen by Provider: 02/16/25 15:53 Vital signs: Vital Signs Temperature 98.7 F 02/16/25 16:00 Pulse Rate 66 02/16/25 16:00 Respiratory Rate 16 02/16/25 16:00 Blood Pressure 137/83 H 02/16/25 16:00 Pulse Oximetry (%) 98 02/16/25 16:00 Oxygen Delivery Method Room Air 02/16/25 16:00 Vital signs reviewed by provider: Yes
[2025-02-16 16:47] LABS: Basophils # (Auto) 0.0 Thou/mm3 (0.0-0.2); Basophils % (Auto) 0 % (0-2.5); Eosinophils # (Auto) 0.0 Thou/mm3 (0.0-0.5); Eosinophils % (Auto) 0 % (0-10); Hematocrit 39.4 % (36.0-46.0); Hemoglobin 13.4 g/dL (12.0-16.0); Immature Granulocytes Auto 0.09 Thou/mm3 (0.00-0.00); Lymphocytes # (Auto) 2.2 Thou/mm3 (1.0-4.8); Lymphocytes % (Auto) 16 % (10-50); Mean Corpuscular HGB Conc 34.0 g/dl (31.0-37.0); Mean Corpuscular Hemoglobin 31.6 pg (25.0-35.0); Mean Corpuscular Volume 93 fL (80-100); Monocytes # (Auto) 0.4 Thou/mm3 (0.0-0.8); Monocytes % (Auto) 3 % (0-12); Neutrophils # (Auto) 11.0 Thou/mm3 (1.8-7.7); Neutrophils % (Auto) 80 % (37-80); Nucleated Red Blood Cell # 0.00 Thou/mm3 (0.00-0.00); Nucleated Red Blood Cell % 0 /100 WBC (0); Platelet Count 250 Thou/mm3 (140-440); RDW Standard Deviation 39.8 fL (36.4-46.3); Red Blood Count 4.24 Miln/mm3 (4.00-5.20); White Blood Count 13.7 Thou/mm3 (3.6-11.0)
[2025-02-16 17:12] LABS: B-Type Natriuretic Peptide < 20 pg/mL (0-100)
[2025-02-16 17:15] LABS: Alanine Aminotransferase 33 U/L (10-49); Albumin, Serum 4.7 gm/dL (3.5-5.0); Albumin/Globulin Ratio 1.9 (1.2-2.2); Alkaline Phosphatase 49 U/L (46-116); Anion Gap 10 (7-16); Aspartate Amino Transferase 39 U/L (0-34); BUN/Creatinine Ratio 9 Ratio (12-20); Bilirubin,Total 0.5 mg/dL (0.3-1.2); Blood Urea Nitrogen 7 mg/dL (9-23); Calcium 10.3 mg/dL (8.3-10.6); Calcium (Corrected) 10.3 mg/dL (8.5-10.1); Carbon Dioxide 27.8 mMol/L (20.0-31.0); Chloride 102 mMol/L (98-107); Creatinine (Component) 0.8 mg/dL (0.6-1.3); Estimated Creatinine Clearance 88.6 mL/min (>60); Globulin 2.5 gm/dL (2.3-3.5); Glucose 97 mg/dL (74-106); Magnesium 1.7 mg/dL (1.6-2.6); Osmolality,Calculated 277 (275-295); Potassium 4.2 mMol/L (3.4-5.1); Sodium 140 mMol/L (136-145); Total Protein 7.2 gm/dL (5.7-8.2); Troponin I < 0.002 ng/mL (0.0-0.045); eGFR > 60 See Note
--- NOTE | 2025-02-16 19:42 | EDNOTE_ITS ---
ED General RME/HPI General Chief complaint: Anxiety Stated complaint: ANXIETY, CHILLS, FLU SYMPTOMS, DIZZY Time Seen by Provider: 02/16/25 15:53 Arrival date/time: 02/16/25 15:22 CC: Mild shakiness weakness, fatigue, not feeling like self . Patient admits that she is tapering off her and SSR I, that she was on for 2 months, 10 mg, she was informed to take 5 mg for 1 week and then go to 5 mg every other day and has started the every other day yesterday, at which time she had the onset of the feelings. Patient denies fever chills chest pain shortness of breath or difficulty breathing. In addition of this the patient is on 41 mg of methadone twice a day and is just weaned herself off citalopram from 10 to 5 mg once a day. Patient is awake alert oriented and appears not in any acute distress. RME / HPI RME / HPI narrative: 02/16/25 15:22 34-year-old female with a history of anxiety presents to the emergency room with a chief complaint of generalized weakness fatigue and not feeling like herself. Patient states she has been tapered off of an SSRI that was prescribed to her for her anxiety. I have greeted and performed a focused initial assessment of this patient. A comprehensive ED assessment and evaluation of the patient, analysis of all test results, and completion of the medical decision making process will be conducted by additional ED providers. Related Data Home Medications ?Medication ?Instructions ?Recorded ?Confirmed methadone 10 mg/mL oral concentrate 10 mg PO Q6H 12/1701/06/24 Previous Rx's ?Medication ?Instructions ?Recorded oxycodone-acetaminophen 5 mg-325 1 tab PO Q6H PRN pain #10 tabs 12/18/23 mg tablet (Percocet) pantoprazole 40 mg tablet,delayed 40 mg PO QDAY #20 ta bs 08/06/24 release (Protonix) Allergies Allergy/AdvReac Type Severity Reaction Status Date / Time No Known Allergies Allergy Verified 02/16/25 15:24 Review of Systems Review of Systems Narrative Review of Systems: GEN: No fever, no chills, no weight loss EYES: No discharge, no visual changes, no pain HEENT: No ear pain, no congestion, no sore throat PULM: No shortness of breath, no cough, no congestion CV: No chest pain, no dyspnea on exertion, no palpitations GI: No nausea, no vomiting, no diarrhea, no pain, no constipation : No frequency, no urgency, no dysuria MUSC/SKEL: No joint pain, no back pain SKIN: No rash PSYCH: No hallucinations, no depression HEME/LYMPH: No easy bleeding or bruising tendencies NEURO: No weakness, no headache Past Medical History Past Medical History NEUROLOGIC: Negative Seizures CARDIAC: Negative Congestive Heart Failure RESPIRATORY: Negative Chronic Obstructive Pulmonary Disease (COPD) or Smoking GENITOURINARY: Negative Renal Disease ENDOCRINE: Negative Diabetes Mellitus Type 1 or Diabetes Mellitus Type 2 OTHER HISTORY: Negative Blood Transfusions, Blood Transfusion Reaction or Anesthesia Reactions Surgical History SURGICAL: Positive Section Social History SMOKING STATUS: Never smoker ED Exam Narrative Physical exam: [General: Not in any acute distress Head normocephalic HEENT: Within acceptable limits Neck is supple nontender Chest equal chest rise nontender to palpation Respiratory: Clear to auscultation no wheezes crackles or rubs CV: Rate rhythm is regular no murmurs rubs or clicks Abdomen is soft nontender no masses positive bowel sounds all 4 quadrants Back: No CVA tenderness no spinous process tenderness from cervical spine thoracic and lumbar spine Skin: Intact no petechiae rash induration ulceration or crepitus Extremities: Moving all extremities against resistance cap refill less than 2 seconds neurosensory intact Neuro: Awake alert oriented x3 Glascow coma 15 no focal deficits] Course Quality Measures none Orders Category Date Time Status Bedside COVID-19 Antigen Test NOW Care 02/16/25 16:14 Active Bedside Influenza A&B Antigen Test NOW Care 02/16/25 16:14 Completed EKG (ED ONLY) *Do not use* NOW Care 02/16/25 16:13 Completed EKG (ED Only) Stat Exams 02/16/25 16:13 Draft B-Type Natriuretic Peptide Stat Lab 02/16/25 16:28 Completed CBC Stat Lab 02/16/25 16:28 Completed Comprehensive Metabolic Panel Stat Lab 02/16/25 16:28 Completed Magnesium Stat Lab 02/16/25 16:28 Completed Troponin I Stat Lab 02/16/25 16:28 Completed Vital Signs Vital signs: Vital Signs Temperature 98.7 F 02/16/25 16:00 Pulse Rate 66 02/16/25 16:00 Respiratory Rate 16 02/16/25 16:00 Blood Pressure 137/83 H 02/16/25 16:00 Pulse Oximetry (%) 98 02/16/25 16:00 Oxygen Delivery Method Room Air 02/16/25 16:00 Discharge Plan Plan Patient Disposition: HOME (Self Care) Patient condition on transfer: Stable Prescriptions/Referrals Prescriptions/Med Rec: No Action pantoprazole [Protonix] 40 mg tablet,delayed release (DR/EC) 40 mg PO QDAY Qty: 20 0RF methadone 10 mg/mL Concentrate 10 mg PO Q6H oxycodone-acetaminophen [Percocet] 5-325 mg tablet 1 tab PO Q6H MDD 6 tabs PRN (Reason: pain) Qty: 10 0RF Referrals: Kris Jarvis MD [Primary Care Provider] - In 1 week Problem List Clinical Impression: Drug withdrawal Patient/Caregiver Discharge Instructions Other Activity Instructions:: Continue on the 5 mg of your SSRI for another 2 days to 5 days, then decrease to 2-1/2 mg once a day for 5 days then consider every other day 2-1/2 mg. Make sure you maintain the same dosage of methadone and citalopram do not adjust these until you are completely off the SSRIs. Follow-up with your primary care doctor. If there is worsening of symptoms return the emergency room immediately for further evaluation. Print Language: [place] Stand Alone Forms: Yaritza Award Info., Work/School Release, Patient Portal Info Letter PA/VJ Supervising Physician PA/VJ Supervising Physician: Brian Carbone ENP [facility] Clinical Information Provided by patient Medical Records Reviewed [facility] Labs/Rad/Tests considered, not Ordered None Chronic Illness/Social Conditions Add or document further as needed: Methadone dependency anxiety EKG EKG Interpretation narrative: EKG performed at 1615 shows a ventricular rate of 6 6 MD interval 171 QRS of 95 QTc of 425 this is sinus rhythm baseline artifact. When compared to an old EKG of July 2024 there are no significant changes. Lab Interpretation Labs: interpreted by me Lab(s) interpretation(s): CBC shows a mild leukocytosis of 13.7 no anemia thrombocytopenia CMP shows no acute electrolyte imbalances renal impairment transaminitis or T. bili elevation Troponin is negative BNP is negative Imaging Imaging interpretation: none Provider imaging interpretation(s): I suspect these are side effects of an overaggressive weaning off SSRIs. Patient is advised to continue with 5 mg for another week then decrease to 2-1/2 mg once daily per week and then every other day. Diagnosis Differential diagnosis: SSRI withdrawal symptoms polypharmacy anxiety Dispositon Disposition: Discharge Home
== END 2025-02-16 20:03 | disposition home or self-care (01) ==
PROVIDERS: Nurse Practitioner Family; Emergency Provider Emergency Medicine; PCP Family Medicine
DX: F19.239 Other psychoactive substance dependence with withdrawal, unspecified (principal); R94.31 Abnormal electrocardiogram [ECG] [EKG]
CPT/HCPCS: 36415; 80053; 83735; 83880; 84484; 85025; 87400; 87811; 93005; 99283